=== PATIENT | male | born 1955 | race Two or more races ===

== ENCOUNTER 2023-07-31 23:28 | Inpatient (IN) | payer MEDICARE, OTHER ==
[~2023-07-31] VITALS: Ht 177.8 cm; Wt 83.0 kg
[2023-08-01 00:16] LABS: APPEARANCE,URINE SLIGHTLY CLOUDY (CLEAR); BILIRUBIN,URINE NEGATIVE (NEGATIVE); BLOOD, URINE 2+ Ery/uL (NEGATIVE); COLOR,URINE DARK YELLOW (YELLOW); KETONES,URINE NEGATIVE (NEGATIVE); LEUKOCYTE ESTERASE ,URINE 2+ (NEGATIVE); NITRITE, URINE NEGATIVE (NEGATIVE); PROTEIN,URINE 2+ mg/dl (NEGATIVE); UGLUCOSE NEGATIVE (NEGATIVE); UROBILINOGEN,URINE 0.2 EU/dL (0.2)
[2023-08-01 00:17] LABS: ADD URINE CULTURE YES; BACTERIA,URINE Rare /HPF (None Seen); SQUAMOUS EPITHELIAL CELL,UR Few /HPF (None Seen)
[2023-08-01 00:22] LABS: AMPHETAMINE, URINE NEGATIVE (NEGATIVE); BARBITURATE, URINE NEGATIVE (NEGATIVE); BENZODIAZEPINE, URINE NEGATIVE (NEGATIVE); CANNABINOID, URINE NEGATIVE (NEGATIVE); COCCAINE, URINE NEGATIVE (NEGATIVE); OPIATE, URINE NEGATIVE (NEGATIVE); PHENCYCLIDINE SCREEN,URINE NEGATIVE (NEGATIVE)
[2023-08-01] MEDS ORDERED: CIPROFLOXACIN HCL 500 MG TABLET PO ONE (00:30)
[2023-08-01] MEDS ORDERED: CIPROFLOXACIN HCL 500 MG TABLET ONE (00:33)
[2023-08-01 01:06] LABS: BASOPHILS % (AUTO) 0.1 % (0.0-2.0); EOSINOPHILS # (AUTO) 0.1 K/uL (0.0-0.7); EOSINOPHILS % (AUTO) 1.2 % (0.0-6.0); HEMATOCRIT 40 % (39-51); HEMOGLOBIN 13.2 g/dL (13.5-17.5); LYMPHOCYTES # (AUTO) 0.4 K/uL (0.8-4.8); LYMPHOCYTES % (AUTO) 4.9 % (20.0-44.0); MEAN CORPUSCULAR HEMOGLOBIN 28 PG (26.0-33.0); MEAN CORPUSCULAR HGB CONC 33 g/dl (31.0-36.0); MEAN CORPUSCULAR VOLUME 86 fL (80-96); MONOCYTES # (AUTO) 0.4 K/uL (0.1-1.30); MONOCYTES % (AUTO) 4.4 % (2.0-12.0); NEUTROPHILS # (AUTO) 7.4 K/uL (1.8-8.9); NEUTROPHILS % (AUTO) 89.4 % (43.0-81.0); PLATELET COUNT (AUTO) 116 K/uL (150-450); RED CELL DISTRIBUTION WIDTH 15.5 % (11.5-15.0); WHITE BLOOD COUNT (AUTO) 8.3 K/uL (4.3-11.0)
[2023-08-01 01:10] LABS: CALCIUM, SERUM 9.4 mg/dL (8.5-10.1); CARBON DIOXIDE 27 mmol/L (21-32); CHLORIDE 105 mmol/L (98-107); GLUCOSE 126 mg/dL (74-106); POTASSIUM 4.2 mmol/L (3.5-5.1); SODIUM SERUM 138 mmol/L (136-145); UREA NITROGEN, BLOOD 15 mg/dL (7-18)
[2023-08-01 01:16] LABS: ACETAMINOPHEN < 10 ug/ml (10-30); ALANINE AMINOTRANSFERASE 13 U/L (12-78); ALBUMIN 3.3 g/dL (3.4-5.0); ALCOHOL, BLOOD < 3 mg/dL (0-10); ALKALINE PHOSPHATASE 80 U/L (46-116); ASPARTATE AMINOTRANSFERASE 13 U/L (15-37); BILIRUBIN,DIRECT 0.1 mg/dL (0.0-0.2); BILIRUBIN,TOTAL 0.5 mg/dL (0.2-1.0); TOTAL PROTEIN, SERUM 6.7 g/dL (6.4-8.2)
[2023-08-01 01:21] LABS: SALICYLATE < 2.3 mg/dL (2.8-20.0)
[2023-08-01] MEDS ORDERED: RISP1TAB7 PO (02:02)
[2023-08-01] MEDS ORDERED: MULT-447 PO (02:02)
[2023-08-01] MEDS ORDERED: BENZ0.5T43 PO (02:02)
[2023-08-01] MEDS ORDERED: LAMO100T17 PO (02:02)
[2023-08-01] MEDS ORDERED: ASCO-352 PO (02:02)
[2023-08-01] MEDS ORDERED: RISP2TAB5 PO (02:02)
[2023-08-01] MEDS ORDERED: SERT100T PO (02:02)
[2023-08-01] MEDS ORDERED: DOCU100C36 PO (02:02)
[2023-08-01 03:30] VITALS: BP 135/55; TEMP 98; O2SAT 98
[2023-08-01] MEDS ORDERED: TEMAZEPAM 7.5 MG CAPSULE PO PRN (04:00)
[2023-08-01] MEDS ORDERED: BLOOD SUGAR DIAGNOSTIC 1 EACH STRIP IN ONE (04:00)
[2023-08-01] MEDS ORDERED: ACETAMINOPHEN 325 MG TABLET PO PRN ×2 (04:00→08:30)
[2023-08-01] MEDS ORDERED: MAG HYDROX/AL HYDROX/SIMETH 30 ML UDC PO PRN (04:00)
[2023-08-01] MEDS ORDERED: MAGNESIUM HYDROXIDE 30 ML UDC PO PRN ×2 (04:00→08:30)
[2023-08-01] MEDS ORDERED: LORAZEPAM 0.5 MG TABLET PO PRN (04:00)
[2023-08-01] MEDS ORDERED: ACET-868 PO (07:34)
[2023-08-01] MEDS ORDERED: MAGN400O6 PO (07:34)
[2023-08-01 08:00] VITALS: BP 141/60; TEMP 98.7; O2SAT 97
[2023-08-01] MEDS: DOCUSATE SODIUM 100 MG CAPSULE PO SCH (09:00)
[2023-08-01] MEDS: LEVOFLOXACIN (250MG) 250 MG TABLET PO SCH (13:24)
[2023-08-01] MEDS: risperiDONE-M 0.5 MG TAB.RAPDIS PO SCH ×2 (13:32→16:24)
[2023-08-01 16:00] VITALS: BP 141/71; TEMP 98.6; O2SAT 96
[2023-08-01 21:10] VITALS: BP 126/75; TEMP 98.6; O2SAT 97
[2023-08-02 07:08] LABS: BASOPHILS % (AUTO) 0.2 % (0.0-2.0); EOSINOPHILS # (AUTO) 0.1 K/uL (0.0-0.7); EOSINOPHILS % (AUTO) 1.7 % (0.0-6.0); HEMATOCRIT 37 % (39-51); HEMOGLOBIN 11.9 g/dL (13.5-17.5); LYMPHOCYTES # (AUTO) 0.7 K/uL (0.8-4.8); LYMPHOCYTES % (AUTO) 15.1 % (20.0-44.0); MEAN CORPUSCULAR HEMOGLOBIN 28 PG (26.0-33.0); MEAN CORPUSCULAR HGB CONC 33 g/dl (31.0-36.0); MEAN CORPUSCULAR VOLUME 85 fL (80-96); MONOCYTES # (AUTO) 0.4 K/uL (0.1-1.30); MONOCYTES % (AUTO) 8.6 % (2.0-12.0); NEUTROPHILS # (AUTO) 3.5 K/uL (1.8-8.9); NEUTROPHILS % (AUTO) 74.4 % (43.0-81.0); PLATELET COUNT (AUTO) 107 K/uL (150-450); RED BLOOD CELL COUNT(AUTO) 4.32 MIL/uL (4.5-6.0); WHITE BLOOD COUNT (AUTO) 4.7 K/uL (4.3-11.0)
[2023-08-02 07:12] LABS: ALBUMIN 2.6 g/dL (3.4-5.0); BILIRUBIN,TOTAL 0.5 mg/dL (0.2-1.0); CALCIUM, SERUM 8.9 mg/dL (8.5-10.1); PHOSPHORUS 3.4 mg/dL (2.5-4.9); POTASSIUM 4.2 mmol/L (3.5-5.1); TOTAL PROTEIN, SERUM 5.6 g/dL (6.4-8.2)
[2023-08-02 08:00] VITALS: BP 148/89; TEMP 97.8; O2SAT 97
[2023-08-02] MEDS: risperiDONE-M 0.5 MG TAB.RAPDIS PO SCH ×3 (08:45→16:19)
[2023-08-02] MEDS: DOCUSATE SODIUM 100 MG CAPSULE PO SCH (08:45)
[2023-08-02] MEDS ORDERED: Z GUARD REMEDY 4 OZ OINT TP PRN (12:00)
[2023-08-02] MEDS: LEVOFLOXACIN (250MG) 250 MG TABLET PO SCH (12:00)
[2023-08-02] MEDS: BUPROPION XL 150 MG TAB.ER.24 PO SCH (12:11)
[2023-08-02] MEDS: Z GUARD REMEDY 4 OZ OINT TP SCH (14:13)
[2023-08-02 16:00] VITALS: BP 133/69; TEMP 97.9; O2SAT 96
[2023-08-02] MEDS: BACITRACIN ZINC OINT (15 GM) 15 GM TUBE TP SCH (16:28)
[2023-08-02 21:11] VITALS: BP 142/79; TEMP 97.5; O2SAT 98
[2023-08-03 08:00] VITALS: BP 146/70; TEMP 97.6; O2SAT 99
[2023-08-03] MEDS: risperiDONE-M 0.5 MG TAB.RAPDIS PO SCH ×3 (08:19→16:54)
[2023-08-03] MEDS: DOCUSATE SODIUM 100 MG CAPSULE PO SCH (08:19)
[2023-08-03] MEDS: BUPROPION XL 150 MG TAB.ER.24 PO SCH (08:19)
[2023-08-03] MEDS: BACITRACIN ZINC OINT (15 GM) 15 GM TUBE TP SCH ×2 (08:20→16:55)
[2023-08-03] MEDS: Z GUARD REMEDY 4 OZ OINT TP SCH (08:20)
[2023-08-03] MEDS ORDERED: OLANZAPINE 10 MG VIAL IM PRN (10:30)
[2023-08-03] MEDS: LEVOFLOXACIN (250MG) 250 MG TABLET PO SCH (12:20)
[2023-08-03] MEDS: OXCARBAZEPINE 150 MG TABLET PO SCH ×2 (12:21→16:54)
[2023-08-03 16:00] VITALS: BP 137/67; TEMP 97.9; O2SAT 97
[2023-08-03 21:31] VITALS: BP 138/81; TEMP 97.8; O2SAT 97
[2023-08-04 08:00] VITALS: BP 128/65; TEMP 98; O2SAT 100
[2023-08-04] MEDS: risperiDONE-M 0.5 MG TAB.RAPDIS PO SCH ×3 (08:25→16:17)
[2023-08-04] MEDS: BUPROPION XL 150 MG TAB.ER.24 PO SCH (08:25)
[2023-08-04] MEDS: DOCUSATE SODIUM 100 MG CAPSULE PO SCH (08:25)
[2023-08-04] MEDS: OXCARBAZEPINE 150 MG TABLET PO SCH ×2 (08:25→16:17)
[2023-08-04] MEDS: BACITRACIN ZINC OINT (15 GM) 15 GM TUBE TP SCH ×2 (08:26→16:16)
[2023-08-04] MEDS: Z GUARD REMEDY 4 OZ OINT TP SCH (08:26)
[2023-08-04] MEDS: LEVOFLOXACIN (250MG) 250 MG TABLET PO SCH (12:03)
[2023-08-04 16:00] VITALS: BP 133/80; TEMP 99; O2SAT 96
[2023-08-04 20:00] VITALS: BP 134/69; TEMP 98.6; O2SAT 99
[2023-08-05 08:00] VITALS: BP 134/91; TEMP 97.8; O2SAT 98
[2023-08-05] MEDS: DOCUSATE SODIUM 100 MG CAPSULE PO SCH (08:06)
[2023-08-05] MEDS: OXCARBAZEPINE 150 MG TABLET PO SCH ×2 (08:06→17:29)
[2023-08-05] MEDS: risperiDONE-M 0.5 MG TAB.RAPDIS PO SCH ×3 (08:06→17:29)
[2023-08-05] MEDS: BUPROPION XL 150 MG TAB.ER.24 PO SCH (08:06)
[2023-08-05] MEDS: BACITRACIN ZINC OINT (15 GM) 15 GM TUBE TP SCH ×2 (09:10→17:28)
[2023-08-05] MEDS: Z GUARD REMEDY 4 OZ OINT TP SCH (09:10)
[2023-08-05] MEDS: LEVOFLOXACIN (250MG) 250 MG TABLET PO SCH (11:46)
[2023-08-05 16:00] VITALS: BP 132/75; TEMP 97.9; O2SAT 100
[2023-08-06 08:00] VITALS: BP 133/70; TEMP 97.7; O2SAT 95
[2023-08-06] MEDS: BACITRACIN ZINC OINT (15 GM) 15 GM TUBE TP SCH ×2 (09:00→17:00)
[2023-08-06] MEDS: Z GUARD REMEDY 4 OZ OINT TP SCH (09:00)
[2023-08-06] MEDS: OXCARBAZEPINE 150 MG TABLET PO SCH ×2 (09:19→17:14)
[2023-08-06] MEDS: BUPROPION XL 150 MG TAB.ER.24 PO SCH (09:19)
[2023-08-06] MEDS: DOCUSATE SODIUM 100 MG CAPSULE PO SCH (09:20)
[2023-08-06] MEDS: risperiDONE-M 0.5 MG TAB.RAPDIS PO SCH (10:18)
[2023-08-06] MEDS: LEVOFLOXACIN (250MG) 250 MG TABLET PO SCH (13:40)
[2023-08-06] MEDS ORDERED: PALIPERIDONE PALMITATE 156 MG/ML SYRINGE IM ONE (14:00)
[2023-08-06 16:00] VITALS: BP 105/89; TEMP 98.1; O2SAT 95
[2023-08-06 20:29] VITALS: BP 127/76; TEMP 97.6; O2SAT 98
[2023-08-07 08:00] VITALS: BP 114/55; TEMP 98.2; O2SAT 96
[2023-08-07] MEDS: risperiDONE-M 0.5 MG TAB.RAPDIS PO SCH ×3 (09:00→17:47)
[2023-08-07] MEDS: FUROSEMIDE 20 MG TABLET PO SCH (10:40)
[2023-08-07] MEDS: DOCUSATE SODIUM 100 MG CAPSULE PO SCH (10:40)
[2023-08-07] MEDS: OXCARBAZEPINE 150 MG TABLET PO SCH ×2 (10:41→17:48)
[2023-08-07] MEDS: BACITRACIN ZINC OINT (15 GM) 15 GM TUBE TP SCH ×2 (13:48→17:48)
[2023-08-07] MEDS: Z GUARD REMEDY 4 OZ OINT TP SCH (13:49)
[2023-08-07] MEDS: LEVOFLOXACIN (250MG) 250 MG TABLET PO SCH (13:52)
[2023-08-07 16:00] VITALS: BP 124/66; TEMP 97.6; O2SAT 97
[2023-08-07 20:19] VITALS: BP 140/73; TEMP 98.6; O2SAT 98
[2023-08-08 08:00] VITALS: BP 159/76; TEMP 98.1; O2SAT 96
[2023-08-08] MEDS: buPROPion SR 100 MG TABLET.ER PO SCH ×2 (08:00→09:28)
[2023-08-08] MEDS: BACITRACIN ZINC OINT (15 GM) 15 GM TUBE TP SCH ×3 (09:00→17:00)
[2023-08-08] MEDS: DOCUSATE SODIUM 100 MG CAPSULE PO SCH ×2 (09:00→09:29)
[2023-08-08] MEDS: risperiDONE-M 0.5 MG TAB.RAPDIS PO SCH ×3 (09:00→17:17)
[2023-08-08] MEDS: OXCARBAZEPINE 150 MG TABLET PO SCH ×3 (09:00→17:17)
[2023-08-08] MEDS: FUROSEMIDE 20 MG TABLET PO SCH ×2 (09:00→09:28)
[2023-08-08] MEDS: Z GUARD REMEDY 4 OZ OINT TP SCH ×2 (09:00→09:29)
[2023-08-08] MEDS: LEVOFLOXACIN (250MG) 250 MG TABLET PO SCH (11:30)
[2023-08-08 12:34] LABS: ALBUMIN 2.7 g/dL (3.4-5.0); BILIRUBIN,TOTAL 0.4 mg/dL (0.2-1.0); CREATININE 0.9 mg/dL (0.6-1.3); POTASSIUM 3.7 mmol/L (3.5-5.1)
[2023-08-08 16:00] VITALS: BP 130/82; TEMP 98.1; O2SAT 98
[2023-08-08] MEDS ORDERED: LORAZEPAM 0.5 MG TABLET PO PRN (16:00)
[2023-08-08 20:24] VITALS: BP 142/70; TEMP 98.1; O2SAT 97
[2023-08-09 08:00] VITALS: BP 146/63; TEMP 97.8; O2SAT 96
[2023-08-09] MEDS: buPROPion SR 100 MG TABLET.ER PO SCH (08:59)
[2023-08-09] MEDS: DOCUSATE SODIUM 100 MG CAPSULE PO SCH (08:59)
[2023-08-09] MEDS: risperiDONE-M 0.5 MG TAB.RAPDIS PO SCH (08:59)
[2023-08-09] MEDS: FUROSEMIDE 20 MG TABLET PO SCH (08:59)
[2023-08-09] MEDS: OXCARBAZEPINE 150 MG TABLET PO SCH ×2 (08:59→16:27)
[2023-08-09] MEDS: Z GUARD REMEDY 4 OZ OINT TP SCH (09:02)
[2023-08-09] MEDS: BACITRACIN ZINC OINT (15 GM) 15 GM TUBE TP SCH ×2 (09:03→16:35)
[2023-08-09] MEDS: LEVOFLOXACIN (250MG) 250 MG TABLET PO SCH (13:02)
[2023-08-09 16:00] VITALS: BP 126/62; TEMP 98.4; O2SAT 99
[2023-08-09] MEDS: BENZTROPINE MESYLATE (1 MG) 1 MG TABLET PO SCH (16:27)
[2023-08-09 20:51] VITALS: BP 114/81; TEMP 98.6; O2SAT 100
[2023-08-10 08:00] VITALS: BP 135/64; TEMP 98.1; O2SAT 98
[2023-08-10] MEDS: buPROPion SR 100 MG TABLET.ER PO SCH (08:31)
[2023-08-10] MEDS: OXCARBAZEPINE 150 MG TABLET PO SCH ×3 (08:31→17:38)
[2023-08-10] MEDS: BENZTROPINE MESYLATE (1 MG) 1 MG TABLET PO SCH ×2 (08:32→17:38)
[2023-08-10] MEDS: BACITRACIN ZINC OINT (15 GM) 15 GM TUBE TP SCH ×2 (08:32→17:37)
[2023-08-10] MEDS: FUROSEMIDE 20 MG TABLET PO SCH (08:32)
[2023-08-10] MEDS: DOCUSATE SODIUM 100 MG CAPSULE PO SCH (08:32)
[2023-08-10] MEDS: Z GUARD REMEDY 4 OZ OINT TP SCH (08:33)
[2023-08-10] MEDS: LEVOFLOXACIN (250MG) 250 MG TABLET PO SCH (12:47)
[2023-08-10 15:22] LABS: BASOPHILS % (AUTO) 0.2 % (0.0-2.0); EOSINOPHILS # (AUTO) 0.1 K/uL (0.0-0.7); EOSINOPHILS % (AUTO) 2.8 % (0.0-6.0); HEMATOCRIT 39 % (39-51); HEMOGLOBIN 12.7 g/dL (13.5-17.5); LYMPHOCYTES # (AUTO) 0.5 K/uL (0.8-4.8); LYMPHOCYTES % (AUTO) 14.3 % (20.0-44.0); MEAN CORPUSCULAR HEMOGLOBIN 27 PG (26.0-33.0); MEAN CORPUSCULAR HGB CONC 32 g/dl (31.0-36.0); MEAN CORPUSCULAR VOLUME 84 fL (80-96); MONOCYTES # (AUTO) 0.2 K/uL (0.1-1.30); MONOCYTES % (AUTO) 6.4 % (2.0-12.0); NEUTROPHILS # (AUTO) 2.7 K/uL (1.8-8.9); NEUTROPHILS % (AUTO) 76.3 % (43.0-81.0); PLATELET COUNT (AUTO) 120 K/uL (150-450); RED BLOOD CELL COUNT(AUTO) 4.69 MIL/uL (4.5-6.0); RED CELL DISTRIBUTION WIDTH 15.3 % (11.5-15.0); WHITE BLOOD COUNT (AUTO) 3.5 K/uL (4.3-11.0)
[2023-08-10 16:00] VITALS: BP 132/74; TEMP 98.8; TEMP 98.9; O2SAT 96
[2023-08-10 16:39] LABS: ALBUMIN 2.7 g/dL (3.4-5.0); BILIRUBIN,TOTAL 0.4 mg/dL (0.2-1.0); CREATININE 0.9 mg/dL (0.6-1.3)
[2023-08-10 20:00] VITALS: BP 126/68; TEMP 98.6; O2SAT 95
[2023-08-11 08:00] VITALS: BP 117/65; TEMP 97.7; O2SAT 100
[2023-08-11] MEDS: Z GUARD REMEDY 4 OZ OINT TP SCH (08:04)
[2023-08-11] MEDS: FUROSEMIDE 20 MG TABLET PO SCH (08:04)
[2023-08-11] MEDS: BENZTROPINE MESYLATE (1 MG) 1 MG TABLET PO SCH ×2 (08:04→16:59)
[2023-08-11] MEDS: OXCARBAZEPINE 150 MG TABLET PO SCH ×3 (08:04→16:59)
[2023-08-11] MEDS: DOCUSATE SODIUM 100 MG CAPSULE PO SCH (08:04)
[2023-08-11] MEDS: LEVOFLOXACIN (250MG) 250 MG TABLET PO SCH (13:58)
[2023-08-11 16:00] VITALS: BP 114/53; TEMP 98.6; O2SAT 95
[2023-08-11] MEDS: BACITRACIN ZINC OINT (15 GM) 15 GM TUBE TP SCH ×2 (16:11→16:58)
[2023-08-11 20:00] VITALS: BP 126/70; TEMP 98.6; O2SAT 98
[2023-08-12] MEDS: FUROSEMIDE 20 MG TABLET PO SCH (08:31)
[2023-08-12] MEDS: OXCARBAZEPINE 150 MG TABLET PO SCH ×3 (08:31→16:44)
[2023-08-12] MEDS: DOCUSATE SODIUM 100 MG CAPSULE PO SCH (08:31)
[2023-08-12] MEDS: BENZTROPINE MESYLATE (1 MG) 1 MG TABLET PO SCH ×2 (08:31→16:43)
[2023-08-12] MEDS: BACITRACIN ZINC OINT (15 GM) 15 GM TUBE TP SCH ×2 (09:47→16:44)
[2023-08-12] MEDS: Z GUARD REMEDY 4 OZ OINT TP SCH (09:47)
[2023-08-12] MEDS: LEVOFLOXACIN (250MG) 250 MG TABLET PO SCH (16:51)
[2023-08-12 20:15] VITALS: BP 115/58; TEMP 98.2; O2SAT 98
[2023-08-13 08:00] VITALS: BP 118/57; TEMP 98.1; O2SAT 97
[2023-08-13] MEDS: FUROSEMIDE 20 MG TABLET PO SCH (08:31)
[2023-08-13] MEDS: DOCUSATE SODIUM 100 MG CAPSULE PO SCH (08:31)
[2023-08-13] MEDS: BACITRACIN ZINC OINT (15 GM) 15 GM TUBE TP SCH ×2 (08:32→17:40)
[2023-08-13] MEDS: OXCARBAZEPINE 150 MG TABLET PO SCH ×3 (08:32→17:39)
[2023-08-13] MEDS: Z GUARD REMEDY 4 OZ OINT TP SCH (08:32)
[2023-08-13] MEDS: BENZTROPINE MESYLATE (1 MG) 1 MG TABLET PO SCH ×2 (08:32→17:40)
[2023-08-13] MEDS ORDERED: PALIPERIDONE PALMITATE 117 MG/0.75 ML SYRINGE IM ONE (10:30)
[2023-08-13] MEDS ORDERED: PALIPERIDONE PALMITATE 156 MG/ML SYRINGE IM ONE (13:00)
[2023-08-13] MEDS ORDERED: MISCELLANEOUS MED 1 EA EA XX ONE (13:00)
[2023-08-13 16:00] VITALS: BP 125/83; TEMP 97.9; O2SAT 100
[2023-08-13 20:11] VITALS: BP 120/64; TEMP 98; O2SAT 97
[2023-08-14 08:00] VITALS: BP 119/59; TEMP 97.8; O2SAT 96
[2023-08-14] MEDS: DOCUSATE SODIUM 100 MG CAPSULE PO SCH (09:07)
[2023-08-14] MEDS: OXCARBAZEPINE 150 MG TABLET PO SCH ×3 (09:07→17:29)
[2023-08-14] MEDS: FUROSEMIDE 20 MG TABLET PO SCH (09:08)
[2023-08-14] MEDS: BENZTROPINE MESYLATE (1 MG) 1 MG TABLET PO SCH ×2 (09:08→17:29)
[2023-08-14] MEDS: BACITRACIN ZINC OINT (15 GM) 15 GM TUBE TP SCH ×2 (09:08→17:30)
[2023-08-14] MEDS: Z GUARD REMEDY 4 OZ OINT TP SCH (09:08)
[2023-08-14] MEDS: buPROPion SR 100 MG TABLET.ER PO SCH (10:39)
[2023-08-14 16:00] VITALS: BP 126/85; TEMP 98.1; O2SAT 100
[2023-08-14 20:18] VITALS: BP 124/76; TEMP 98.6; O2SAT 98
[2023-08-15 08:00] VITALS: BP 106/51; TEMP 98.4; O2SAT 97
[2023-08-15] MEDS: DOCUSATE SODIUM 100 MG CAPSULE PO SCH (08:42)
[2023-08-15] MEDS: FUROSEMIDE 20 MG TABLET PO SCH (08:42)
[2023-08-15] MEDS: OXCARBAZEPINE 150 MG TABLET PO SCH (08:42)
[2023-08-15] MEDS: BENZTROPINE MESYLATE (1 MG) 1 MG TABLET PO SCH (08:42)
[2023-08-15] MEDS: buPROPion SR 100 MG TABLET.ER PO SCH (08:42)
[2023-08-15] MEDS: BACITRACIN ZINC OINT (15 GM) 15 GM TUBE TP SCH (09:12)
[2023-08-15] MEDS: Z GUARD REMEDY 4 OZ OINT TP SCH (09:12)
== END 2023-08-15 13:20 | DRG 885 ==
LOC: ER 23:31 → GPS 08-01 01:57
PROVIDERS: ADMIT Psychiatry & Neurology Psychosomatic Medicine; ATTEND Nurse Practitioner Family
DX: F29 Unspecified psychosis not due to a substance or known physiological condition (principal); I11.0 Hypertensive heart disease with heart failure; F03.918 Unspecified dementia, unspecified severity, with other behavioral disturbance; F03.93 Unspecified dementia, unspecified severity, with mood disturbance; F03.94 Unspecified dementia, unspecified severity, with anxiety; E11.9 Type 2 diabetes mellitus without complications; Z20.822 Contact with and (suspected) exposure to COVID-19; K59.00 Constipation, unspecified; F41.9 Anxiety disorder, unspecified; Z79.01 Long term (current) use of anticoagulants; G47.00 Insomnia, unspecified; I50.9 Heart failure, unspecified; Z73.6 Limitation of activities due to disability; R53.1 Weakness; R27.8 Other lack of coordination; Z91.81 History of falling; S91.209A Unspecified open wound of unspecified toe(s) with damage to nail, initial encounter; X58.XXXA Exposure to other specified factors, initial encounter; Y92.9 Unspecified place or not applicable; R60.9 Edema, unspecified; L60.1 Onycholysis; F25.1 Schizoaffective disorder, depressive type; Z91.148 Patient's other noncompliance with medication regimen for other reason; S91.206A Unspecified open wound of unspecified lesser toe(s) with damage to nail, initial encounter
CPT/HCPCS: 36415; 71045-TC; 80048-TC; 80053-TC; 80061-TC; 80076-TC; 81001; 82962-TC; 83735-TC; 84100-TC; 85025-TC; 87081-TC; 87086-TC; 92526; 92611-TC; A4624; C9803; G0480; J2426

== ENCOUNTER 2024-07-28 09:53 | Inpatient (IN) | payer MEDICARE, OTHER ==
[~2024-07-28] VITALS: Ht 177.8 cm; Wt 70.3 kg
[~2024-07-28 09:53] MED LIST: ACET-868 PO; ASCO-352 PO; BENZ0.5T43 PO; DOCU100C36 PO; LAMO100T17 PO; MAGN400O6 PO; MULT-447 PO; RISP1TAB7 PO; RISP2TAB5 PO; SERT100T PO; TRIA15CR4 TP
[2024-07-28 10:41] LABS: BASOPHILS % (AUTO) 0.2 % (0.0-2.0); EOSINOPHILS # (AUTO) 0.3 K/uL (0.0-0.7); EOSINOPHILS % (AUTO) 5.5 % (0.0-6.0); HEMATOCRIT 47 % (39-51); HEMOGLOBIN 15.7 g/dL (13.5-17.5); LYMPHOCYTES # (AUTO) 0.8 K/uL (0.8-4.8); LYMPHOCYTES % (AUTO) 13.8 % (20.0-44.0); MEAN CORPUSCULAR HEMOGLOBIN 29 PG (26.0-33.0); MEAN CORPUSCULAR HGB CONC 33 g/dl (31.0-36.0); MEAN CORPUSCULAR VOLUME 86 fL (80-96); MONOCYTES # (AUTO) 0.4 K/uL (0.1-1.30); MONOCYTES % (AUTO) 7.1 % (2.0-12.0); NEUTROPHILS # (AUTO) 4.4 K/uL (1.8-8.9); NEUTROPHILS % (AUTO) 73.4 % (43.0-81.0); PLATELET COUNT (AUTO) 134 K/uL (150-450); RED BLOOD CELL COUNT(AUTO) 5.46 MIL/uL (4.5-6.0); RED CELL DISTRIBUTION WIDTH 14.6 % (11.5-15.0)
[2024-07-28 10:53] LABS: CALCIUM, SERUM 9.2 mg/dL (8.5-10.1); CARBON DIOXIDE 30 mmol/L (21-32); CHLORIDE 107 mmol/L (98-107); CREATININE 0.8 mg/dL (0.6-1.3); GLUCOSE 88 mg/dL (74-106); POTASSIUM 3.7 mmol/L (3.5-5.1); SODIUM SERUM 142 mmol/L (136-145); UREA NITROGEN, BLOOD 10 mg/dL (7-18)
[2024-07-28 10:58] LABS: ALBUMIN 2.7 g/dL (3.4-5.0); ALCOHOL, BLOOD < 3 mg/dL (0-10); ASPARTATE AMINOTRANSFERASE 10 U/L (15-37); BILIRUBIN,DIRECT 0.1 mg/dL (0.0-0.2)
[2024-07-28 11:10] LABS: ACETAMINOPHEN < 10 ug/ml (10-30); ALANINE AMINOTRANSFERASE 12 U/L (12-78); ALKALINE PHOSPHATASE 80 U/L (46-116); BILIRUBIN,TOTAL 0.4 mg/dL (0.2-1.0); TOTAL PROTEIN, SERUM 6.1 g/dL (6.4-8.2)
[2024-07-28 11:57] LABS: APPEARANCE,URINE SLIGHTLY CLOUDY (CLEAR); BILIRUBIN,URINE NEGATIVE (NEGATIVE); BLOOD, URINE 1+ Ery/uL (NEGATIVE); COLOR,URINE YELLOW (YELLOW); KETONES,URINE NEGATIVE (NEGATIVE); LEUKOCYTE ESTERASE ,URINE 2+ (NEGATIVE); NITRITE, URINE POSITIVE (NEGATIVE); PH,URINE 6.5 (5.0-8.0); PROTEIN,URINE NEGATIVE (NEGATIVE); UGLUCOSE NEGATIVE (NEGATIVE)
[2024-07-28 11:59] LABS: ADD URINE CULTURE YES; BACTERIA,URINE Moderate /HPF (None Seen); SQUAMOUS EPITHELIAL CELL,UR Rare /HPF (None Seen)
[2024-07-28 12:15] LABS: AMPHETAMINE, URINE NEGATIVE (NEGATIVE); BARBITURATE, URINE NEGATIVE (NEGATIVE); BENZODIAZEPINE, URINE NEGATIVE (NEGATIVE); CANNABINOID, URINE NEGATIVE (NEGATIVE); COCCAINE, URINE NEGATIVE (NEGATIVE); OPIATE, URINE NEGATIVE (NEGATIVE); PHENCYCLIDINE SCREEN,URINE NEGATIVE (NEGATIVE)
[2024-07-28] MEDS: CEFTRIAXONE 1 G VIAL IM ONE (12:19)
[2024-07-28] MEDS ORDERED: CEFTRIAXONE 1 G VIAL ONE (12:21)
[2024-07-28] MEDS ORDERED: LIDOCAINE /MPF 1% VIAL 5 ML VIAL ONE (12:22)
[2024-07-28] MEDS ORDERED: CEFTRIAXONE 1GM BAG (ER ONLY) 1 GM/50 ML PIGGYBACK IV ONE (12:30)
[2024-07-28] MEDS ORDERED: LACT10SO29 PO (12:55)
[2024-07-28] MEDS ORDERED: OXCA150T13 PO (12:55)
[2024-07-28] MEDS ORDERED: MIRT7.5T10 PO (12:55)
[2024-07-28] MEDS ORDERED: OXCA300T15 PO (12:55)
[2024-07-28] MEDS ORDERED: APIX5TAB PO (12:55)
[2024-07-28] MEDS ORDERED: POLY17PO4 PO (12:55)
[2024-07-28] MEDS ORDERED: VITS42.53 TP (12:55)
[2024-07-28] MEDS ORDERED: NA P133E RC (12:55)
[2024-07-28] MEDS ORDERED: FURO20TA4 PO (12:55)
[2024-07-28] MEDS ORDERED: DIPH25TA62 PO (12:55)
[2024-07-28] MEDS ORDERED: TEA30SPR TP (12:55)
[2024-07-28] MEDS ORDERED: ACET-73 PO (12:55)
[2024-07-28] MEDS ORDERED: MAGNESIUM HYDROXIDE 30 ML UDC PO PRN (16:30)
[2024-07-28] MEDS ORDERED: LORAZEPAM 1 MG TABLET PO PRN (16:30)
[2024-07-28] MEDS ORDERED: ZOLPIDEM TARTRATE 5 MG TABLET PO PRN (16:30)
[2024-07-28] MEDS ORDERED: MAG HYDROX/AL HYDROX/SIMETH 30 ML UDC PO PRN (16:30)
[2024-07-28] MEDS: BLOOD SUGAR DIAGNOSTIC 1 EACH STRIP IN ONE (16:57)
[2024-07-28 20:49] VITALS: BP 152/72; TEMP 98.2; O2SAT 96
[2024-07-29] MEDS: LACTULOSE 10 G/15 ML UDC (PYXIS) PO SCH (05:00)
[2024-07-29 08:00] VITALS: BP 144/92; TEMP 97.7; O2SAT 98
[2024-07-29] MEDS: VITAMINS A AND D 56.7 GM TUBE TP SCH (08:59)
[2024-07-29] MEDS: CEFUROXIME AXETIL 250 MG TABLET PO SCH (08:59)
[2024-07-29] MEDS: TRIAMCINOLONE ACETONIDE 0.1% CR 15 GM TUBE TP SCH (08:59)
[2024-07-29] MEDS: FUROSEMIDE 20 MG TABLET PO SCH (08:59)
[2024-07-29] MEDS: POLYETHYLENE GLYCOL 3350 17 GM POWD.PACK PO SCH (08:59)
[2024-07-29] MEDS: APIXABAN 5 MG TABLET PO SCH (08:59)
[2024-07-29] MEDS: diphenhydrAMINE HCL 25 MG CAPSULE PO PRN (11:55)
[2024-07-29 12:27] LABS: ALBUMIN 2.7 g/dL (3.4-5.0); BILIRUBIN,TOTAL 0.4 mg/dL (0.2-1.0); CALCIUM, SERUM 9.4 mg/dL (8.5-10.1); CREATININE 0.8 mg/dL (0.6-1.3); POTASSIUM 4.1 mmol/L (3.5-5.1); TOTAL PROTEIN, SERUM 6.1 g/dL (6.4-8.2)
[2024-07-29 12:44] LABS: CHOLESTEROL 142 mg/dL (<200); HDL CHOLESTEROL 40 mg/dL (40-60); LDL 92 mg/dL (0-99); TRIGLYCERIDES 54 mg/dL (30-150)
[2024-07-29] MEDS: CEPHALEXIN MONOHYDRATE 500 MG CAPSULE PO SCH (13:43)
[2024-07-29 16:00] VITALS: BP 133/87; TEMP 97.8; O2SAT 96
[2024-07-29] MEDS: OXCARBAZEPINE 150 MG TABLET PO SCH (19:43)
[2024-07-29 20:20] VITALS: BP 160/74; TEMP 98.4; O2SAT 95
[2024-07-29] MEDS: CLONIDINE HCL 0.1 MG TABLET PO PRN (20:42)
[2024-07-29] MEDS: risperiDONE 0.25 MG TABLET PO SCH (21:57)
[2024-07-29 23:32] VITALS: BP 121/83; TEMP 98.4; O2SAT 95
[2024-07-30 08:00] VITALS: BP 154/78; TEMP 97.6; O2SAT 99
[2024-07-30] MEDS: risperiDONE 0.25 MG TABLET PO SCH (09:00)
[2024-07-30 16:00] VITALS: BP 120/76; TEMP 98; O2SAT 100
[2024-07-30] MEDS ORDERED: OLANZAPINE 10 MG VIAL IM PRN ×2 (19:00)
[2024-07-30 20:00] VITALS: BP 131/73; TEMP 98.4; O2SAT 96
[2024-07-31 08:00] VITALS: BP 114/67; TEMP 97.9; O2SAT 98
[2024-07-31] MEDS: ACETAMINOPHEN 325 MG TABLET PO PRN (08:54)
[2024-07-31 20:00] VITALS: BP 128/70; TEMP 98.2; O2SAT 99
[2024-08-01 08:00] VITALS: BP 136/71; TEMP 98; O2SAT 95
[2024-08-01] MEDS: PERMETHRIN 5% CRM 60 GM TUBE TP ONE (10:09)
[2024-08-01 16:00] VITALS: BP 147/76; TEMP 97.8; O2SAT 97
[2024-08-01] MEDS: risperiDONE 1 MG TABLET PO SCH (16:21)
[2024-08-01 20:00] VITALS: BP 136/78; TEMP 98.6; O2SAT 96
[2024-08-02 08:00] VITALS: BP 148/45; TEMP 96.7; O2SAT 95
[2024-08-02 15:59] VITALS: BP 144/84; TEMP 97.6; O2SAT 96
[2024-08-02 16:00] VITALS: BP 144/84; TEMP 97.6; O2SAT 96
[2024-08-02 20:21] VITALS: BP 133/72; TEMP 98.1; O2SAT 98
[2024-08-03 08:00] VITALS: BP 183/113; TEMP 98; O2SAT 96
[2024-08-03 16:00] VITALS: BP 139/71; TEMP 97.9; O2SAT 95
[2024-08-03 20:55] VITALS: BP 123/64; TEMP 98.2; O2SAT 96
[2024-08-03] MEDS: LACTULOSE 10 G/15 ML UDC (PYXIS) ONE (21:47)
[2024-08-04] MEDS: LACTULOSE 10 G/15 ML UDC (PYXIS) ONE (05:47)
[2024-08-04 08:00] VITALS: BP 136/73; TEMP 98.6; O2SAT 96
[2024-08-04 16:00] VITALS: BP 136/81; TEMP 97.7; O2SAT 98
[2024-08-04 20:11] VITALS: BP 112/66; TEMP 98.1; O2SAT 97
[2024-08-04] MEDS: risperiDONE 1 MG TABLET PO SCH (21:34)
[2024-08-05 08:00] VITALS: BP 162/99; TEMP 97.9; O2SAT 96
[2024-08-05 12:45] LABS: BASOPHILS % (AUTO) 0.3 % (0.0-2.0); EOSINOPHILS # (AUTO) 0.3 K/uL (0.0-0.7); EOSINOPHILS % (AUTO) 6.1 % (0.0-6.0); HEMATOCRIT 45 % (39-51); LYMPHOCYTES # (AUTO) 1.1 K/uL (0.8-4.8); LYMPHOCYTES % (AUTO) 20.3 % (20.0-44.0); MEAN CORPUSCULAR HEMOGLOBIN 29 PG (26.0-33.0); MEAN CORPUSCULAR HGB CONC 33 g/dl (31.0-36.0); MEAN CORPUSCULAR VOLUME 88 fL (80-96); MONOCYTES # (AUTO) 0.4 K/uL (0.1-1.30); MONOCYTES % (AUTO) 6.8 % (2.0-12.0); NEUTROPHILS # (AUTO) 3.5 K/uL (1.8-8.9); NEUTROPHILS % (AUTO) 66.5 % (43.0-81.0); PLATELET COUNT (AUTO) 136 K/uL (150-450); RED BLOOD CELL COUNT(AUTO) 5.13 MIL/uL (4.5-6.0); RED CELL DISTRIBUTION WIDTH 14.3 % (11.5-15.0); WHITE BLOOD COUNT (AUTO) 5.3 K/uL (4.3-11.0)
[2024-08-05] MEDS: IVERMECTIN 3 MG TABLET PO ONE (15:16)
[2024-08-05 16:17] VITALS: BP 132/72; TEMP 98.2; O2SAT 100
[2024-08-05 20:50] VITALS: BP 121/72; TEMP 98.4; O2SAT 98
[2024-08-06 08:00] VITALS: BP 148/81; TEMP 98.2; O2SAT 99
[2024-08-06] MEDS: OXCARBAZEPINE 150 MG TABLET PO SCH (08:33)
[2024-08-06 16:00] VITALS: BP 125/68; TEMP 97.6; O2SAT 95
[2024-08-07 08:00] VITALS: BP_SYST 114; BP_SYST 162; BP_DIAS 76; BP_DIAS 94; TEMP 97.8; O2SAT 96; O2SAT 97
[2024-08-07 16:00] VITALS: BP 147/73; TEMP 98.6; O2SAT 96
[2024-08-07 20:00] VITALS: BP 125/76; TEMP 98; O2SAT 98
[2024-08-08 08:00] VITALS: BP 136/68; TEMP 98; O2SAT 95
[2024-08-08 16:00] VITALS: BP 157/90; TEMP 97.7; O2SAT 98
[2024-08-08 20:00] VITALS: BP 125/70; TEMP 98; O2SAT 98
[2024-08-08] MEDS: PERMETHRIN 5% CRM 60 GM TUBE TP ONE (20:19)
[2024-08-09 07:03] LABS: BASOPHILS % (AUTO) 0.2 % (0.0-2.0); EOSINOPHILS # (AUTO) 0.3 K/uL (0.0-0.7); EOSINOPHILS % (AUTO) 6.2 % (0.0-6.0); HEMATOCRIT 44 % (39-51); HEMOGLOBIN 14.8 g/dL (13.5-17.5); LYMPHOCYTES # (AUTO) 1.1 K/uL (0.8-4.8); LYMPHOCYTES % (AUTO) 23.9 % (20.0-44.0); MEAN CORPUSCULAR HEMOGLOBIN 29 PG (26.0-33.0); MEAN CORPUSCULAR HGB CONC 34 g/dl (31.0-36.0); MEAN CORPUSCULAR VOLUME 86 fL (80-96); MONOCYTES # (AUTO) 0.3 K/uL (0.1-1.30); NEUTROPHILS # (AUTO) 2.9 K/uL (1.8-8.9); NEUTROPHILS % (AUTO) 63.7 % (43.0-81.0); PLATELET COUNT (AUTO) 121 K/uL (150-450); RED BLOOD CELL COUNT(AUTO) 5.11 MIL/uL (4.5-6.0); RED CELL DISTRIBUTION WIDTH 14.4 % (11.5-15.0); WHITE BLOOD COUNT (AUTO) 4.6 K/uL (4.3-11.0)
[2024-08-09 08:00] VITALS: BP 152/90; TEMP 97.7; O2SAT 98
[2024-08-09 16:00] VITALS: BP 131/88; TEMP 97.9; O2SAT 96
[2024-08-09 20:07] VITALS: BP 132/87; TEMP 97.9; O2SAT 96
[2024-08-10 08:00] VITALS: BP 125/71; TEMP 98; O2SAT 95
[2024-08-10 16:00] VITALS: BP 129/76; TEMP 97.9; O2SAT 96
[2024-08-10 20:32] VITALS: BP 132/82; TEMP 97.8; O2SAT 97
[2024-08-11] MEDS ORDERED: LACTULOSE 10 G/15 ML UDC (PYXIS) ONE (04:55)
[2024-08-11 08:00] VITALS: BP 123/57; TEMP 97.7; O2SAT 94
[2024-08-11 16:00] VITALS: BP 152/94; TEMP 98.2; O2SAT 98
[2024-08-11 20:15] VITALS: BP 147/97; TEMP 98.2; O2SAT 92
[2024-08-12] MEDS: LACTULOSE 10 G/15 ML UDC (PYXIS) ONE (05:19)
[2024-08-12 08:00] VITALS: BP 156/85; TEMP 98.7; O2SAT 96
[2024-08-12 16:00] VITALS: BP 144/91; TEMP 97.8; O2SAT 98
[2024-08-12 20:10] VITALS: BP 129/74; TEMP 97.8; O2SAT 98
[2024-08-12 20:13] VITALS: BP 138/79; TEMP 98.4; O2SAT 100
[2024-08-12 20:44] VITALS: BP 138/79; TEMP 98.4; O2SAT 100
[2024-08-13 08:00] VITALS: BP 137/93; TEMP 97.8; O2SAT 98
[2024-08-13 14:02] LABS: RHEUMATOID FACTOR SCREEN NEGATIVE (NEGATIVE)
[2024-08-13 14:17] LABS: C-REACTIVE PROTEIN 0.25 mg/dL (0.0-0.30)
[2024-08-13 16:00] VITALS: BP 148/75; TEMP 98.4; O2SAT 98
[2024-08-13 20:00] VITALS: BP 137/82; TEMP 98.5; O2SAT 98
[2024-08-14] MEDS ORDERED: LACTULOSE 10 G/15 ML UDC (PYXIS) ONE (05:38)
[2024-08-14 08:00] VITALS: BP 123/96; TEMP 97.7; O2SAT 97
[2024-08-14 08:10] LABS: HEPATITIS B SURFACE AB Non Reactive (.); IMMUNOGLOBULIN A, SERUM 240 mg/dL (61-437); IMMUNOGLOBULIN G, SERUM 1072 mg/dL (603-1613); IMMUNOGLOBULIN M, SERUM 99 mg/dL (20-172)
[2024-08-14 11:09] LABS: *ANA ANTI-CENTROMERE B AB <0.2 AI (0.0-0.9); *ANA ANTI-DNA(DS) AB, QN 3 IU/mL (0-9); *ANA ANTI-JO-1 <0.2 AI (0.0-0.9); *ANA ANTICHROMATIN ANTIBODY <0.2 AI (0.0-0.9); *ANA RNP ANTIBODIES <0.2 AI (0.0-0.9); *ANA SJOGREN'S ANTI-SS-A <0.2 AI (0.0-0.9); *ANA SJOGREN'S ANTI-SS-B <0.2 AI (0.0-0.9); *ANAANTI-SCLERODERMA-70 AB <0.2 AI (0.0-0.9); *ANASMITH AB <0.2 AI (0.0-0.9)
[2024-08-14 13:11] LABS: FOLIC ACID 6.5 ng/mL (>3.0)
[2024-08-15 05:13] LABS: *SPE ALBUMIN 2.7 g/dL (2.9-4.4); *SPE ALPHA-1-GLOBULIN 0.2 g/dL (0.0-0.4); *SPE ALPHA-2-GLOBULIN 0.5 g/dL (0.4-1.0); *SPE BETA GLOBULIN 0.9 g/dL (0.7-1.3); *SPE GLOBULIN, TOTAL 2.8 g/dL (2.2-3.9); *SPE M-SPIKE Not Observed g/dL (Not Observed); *SPE PROTEIN TOTAL 5.5 g/dL (6.0-8.5); *SPEGAMMA GLOBULIN 1.2 g/dL (0.4-1.8)
== END 2024-08-14 13:35 | DRG 885 ==
LOC: ER 10:00 → GPS 15:47
PROVIDERS: ADMIT Psychiatry & Neurology Psychiatry
DX: F25.1 Schizoaffective disorder, depressive type (principal); F01.54 Vascular dementia, unspecified severity, with anxiety; I11.0 Hypertensive heart disease with heart failure; B95.8 Unspecified staphylococcus as the cause of diseases classified elsewhere; N39.0 Urinary tract infection, site not specified; I50.42 Chronic combined systolic (congestive) and diastolic (congestive) heart failure; G93.40 Encephalopathy, unspecified; F94.0 Selective mutism; E88.09 Other disorders of plasma-protein metabolism, not elsewhere classified; D69.6 Thrombocytopenia, unspecified; B86 Scabies; M62.81 Muscle weakness (generalized); Z79.899 Other long term (current) drug therapy; E78.5 Hyperlipidemia, unspecified; Z91.148 Patient's other noncompliance with medication regimen for other reason; Z79.01 Long term (current) use of anticoagulants
CPT/HCPCS: 36415; 76700-TC; 80048-TC; 80053-TC; 80061-TC; 80076-TC; 81001; 82140-TC; 82607-TC; 82784; 84155; 84165; 84443-TC; 85025-TC; 86140-TC; 86225; 86235; 86334; 86431-TC; 86706; 86803; 87081-TC; 87086-TC; 87340; G0480; J0696; J3490; Q0163

== ENCOUNTER 2024-08-21 00:30 | Emergency (ER) | payer MEDICARE, OTHER ==
[~2024-08-21] VITALS: Ht 177.8 cm; Wt 86.2 kg
[~2024-08-21 00:30] MED LIST changes: +ACET-73 PO; +APIX5TAB PO; -ASCO-352 PO; +DIPH25TA62 PO; +FURO20TA4 PO; +LACT10SO29 PO; -LAMO100T17 PO; +MIRT7.5T10 PO; -MULT-447 PO; +NA P133E RC; +OXCA150T13 PO; +OXCA300T15 PO; +POLY17PO4 PO; -RISP1TAB7 PO; -RISP2TAB5 PO; -SERT100T PO; +TEA30SPR TP; +VITS42.53 TP
[2024-08-21 01:13] LABS: CALCIUM, SERUM 8.3 mg/dL (8.5-10.1); CREATININE 0.8 mg/dL (0.6-1.3); POTASSIUM 3.8 mmol/L (3.5-5.1)
[2024-08-21 01:15] LABS: BASOPHILS % (AUTO) 0.3 % (0.0-2.0); EOSINOPHILS # (AUTO) 0.4 K/uL (0.0-0.7); EOSINOPHILS % (AUTO) 8.4 % (0.0-6.0); HEMATOCRIT 41 % (39-51); HEMOGLOBIN 13.8 g/dL (13.5-17.5); LYMPHOCYTES % (AUTO) 22.3 % (20.0-44.0); MEAN CORPUSCULAR HEMOGLOBIN 29 PG (26.0-33.0); MEAN CORPUSCULAR HGB CONC 34 g/dl (31.0-36.0); MEAN CORPUSCULAR VOLUME 86 fL (80-96); MONOCYTES # (AUTO) 0.3 K/uL (0.1-1.30); MONOCYTES % (AUTO) 5.7 % (2.0-12.0); NEUTROPHILS # (AUTO) 2.9 K/uL (1.8-8.9); NEUTROPHILS % (AUTO) 63.3 % (43.0-81.0); PLATELET COUNT (AUTO) 95 K/uL (150-450); RED BLOOD CELL COUNT(AUTO) 4.76 MIL/uL (4.5-6.0); RED CELL DISTRIBUTION WIDTH 14.5 % (11.5-15.0); WHITE BLOOD COUNT (AUTO) 4.6 K/uL (4.3-11.0)
[2024-08-21 01:35] LABS: ANISOCYTOSIS 1+; BASOPHILS % (MANUAL) 0 % (0.0-2.0); EOSINOPHILS % (MANUAL) 6 % (0-4); LYMPHOCYTES % (MANUAL) 18 % (16-48); MONOCYTES % (MANUAL) 5 % (0-11.0); NEUTROPHILS % (MANUAL) 71 (42-76); PLATELET ESTIMATE DECREASED
[2024-08-21 02:32] LABS: APPEARANCE,URINE CLEAR (CLEAR); BILIRUBIN,URINE NEGATIVE (NEGATIVE); BLOOD, URINE NEGATIVE Ery/uL (NEGATIVE); COLOR,URINE YELLOW (YELLOW); KETONES,URINE NEGATIVE (NEGATIVE); LEUKOCYTE ESTERASE ,URINE NEGATIVE (NEGATIVE); NITRITE, URINE NEGATIVE (NEGATIVE); PH,URINE 7.5 (5.0-8.0); PROTEIN,URINE NEGATIVE (NEGATIVE); UGLUCOSE NEGATIVE (NEGATIVE)
[2024-08-21 02:50] LABS: ADD URINE CULTURE NO; BACTERIA,URINE Rare /HPF (None Seen); RBC,URINE 0-2 /HPF (0-2); SQUAMOUS EPITHELIAL CELL,UR Moderate /HPF (None Seen); WBC,URINE 0-2 /HPF (0-3)
[2024-08-21 05:37] VITALS: BP 153/73; TEMP 98.4; O2SAT 99
== END 2024-08-21 05:39 | disposition home or self-care (01) ==
LOC: ER 00:33
DX: R33.9 Retention of urine, unspecified (principal); I10 Essential (primary) hypertension; E11.9 Type 2 diabetes mellitus without complications; F32.9 Major depressive disorder, single episode, unspecified; F20.9 Schizophrenia, unspecified; F41.9 Anxiety disorder, unspecified; E78.5 Hyperlipidemia, unspecified; Z86.79 Personal history of other diseases of the circulatory system; Z87.19 Personal history of other diseases of the digestive system; Z79.01 Long term (current) use of anticoagulants; Z87.39 Personal history of other diseases of the musculoskeletal system and connective tissue
CPT/HCPCS: 36415; 80048-TC; 81001; 85025-TC; 87086-TC

== ENCOUNTER 2025-06-09 05:29 | Emergency (ER) | payer MEDICARE, OTHER ==
[~2025-06-09] VITALS: Ht 177.8 cm; Wt 83.9 kg
[2025-06-09] MEDS ORDERED: RISP1TAB7 PO (08:06)
[2025-06-09] MEDS ORDERED: ACET325T53 PO (08:06)
[2025-06-09] MEDS ORDERED: DEXT38GE12 PO (08:06)
[2025-06-09] MEDS ORDERED: MIRT-90 PO (08:06)
[2025-06-09] MEDS ORDERED: MAG30ORA PO (08:06)
[2025-06-09] MEDS ORDERED: CRAN425C6 PO (08:06)
[2025-06-09] MEDS ORDERED: MULT-594 PO (08:06)
[2025-06-09] MEDS ORDERED: GLUC1KIT IM (08:06)
[2025-06-09] MEDS ORDERED: LORA-258 PO (08:06)
[2025-06-09 10:04] VITALS: BP 138/76; TEMP 97.8; O2SAT 99
== END 2025-06-09 10:05 ==
LOC: ER 05:32
DX: G93.49 Other encephalopathy (principal); E11.9 Type 2 diabetes mellitus without complications; F03.94 Unspecified dementia, unspecified severity, with anxiety; F20.9 Schizophrenia, unspecified; I10 Essential (primary) hypertension; Z79.01 Long term (current) use of anticoagulants; Z79.899 Other long term (current) drug therapy; W06.XXXA Fall from bed, initial encounter; Y93.89 Activity, other specified; Y92.092 Bedroom in other non-institutional residence as the place of occurrence of the external cause; Y99.8 Other external cause status
CPT/HCPCS: 70450-TC